=== PATIENT | female | born 1940 | race Caucasian/White ===

== ENCOUNTER 2017-04-22 09:49 | Inpatient (IN) ==
--- NOTE | 2017-04-22 07:26 | Discharge Summary ---
Date of Encounter: 04/25/17 Time of Encounter: 06:29 - Discharge Diagnosis (1) Left rotator cuff tear arthropathy Priority: Primary Status: Chronic (2) Status post reverse total replacement of left shoulder Priority: Primary Status: Acute (3) Hypertension Priority: Secondary Status: Chronic Qualifiers: Hypertension type: unspecified secondary hypertension Qualified Code(s): I15.9 - Secondary hypertension, unspecified; I15 - Secondary hypertension (4) Hyperlipidemia Priority: Secondary Status: Chronic Qualifiers: Hyperlipidemia type: unspecified Qualified Code(s): E78.5 - Hyperlipidemia , unspecified (5) Coronary artery disease Priority: Secondary Status: Chronic Qualifiers: Coronary Disease-Associated Artery/Lesion type: [place] artery [place] vs. transplanted heart: [place] heart Associated angina: angina presence unspecified Qualified Code(s): I25.10 - Atherosclerotic heart disease of [place] coronary artery without angina pectoris (6) Obstructive sleep apnea Priority: Secondary Status: Chronic (7) Diabetes type 2, controlled Priority: Secondary Status: Chronic Qualifiers: Diabetes mellitus complication status: with unspecified complications Diabetes mellitus senior living insulin use: unspecified rodent exterminator insulin use status Qualified Code(s): E11.8 - Type 2 diabetes mellitus with unspecified complications - Discharge Medications Home Medications: Amitriptyline [Elavil] 25 mg PO HS 04/22/17 [History] Furosemide [Lasix] 60 mg PO QAM 04/22/17 [History] Gabapentin [Neurontin] 300 mg PO DAILY 04/22/17 [History] GlipiZIDE [Glipizide Xl] 5 mg PO BID 04/22/17 [History] Metoprolol [Lopressor] 50 mg PO BID 04/22/17 [History] Omeprazole [PriLOSEC] 20 mg PO DAILY 04/22/17 [History] OxyCODONE Immed Rel [Roxicodone 5 MG] 5 mg PO Q4HR PRN #24 tablet 04/22/17 [Rx] Potassium Chloride [K-Tab ER] 40 meq PO BID 04/22/17 [History] metFORMIN [Glucophage] 1,000 mg PO BIDWM 04/22/17 [History] rOPINIRole [Requip] 1 mg PO HS 04/22/17 [History] Allergies/Adverse Reactions: 3 Allergy/AdvReac Type Severity Reaction Status Date / Time levofloxacin [From Levaquin] Allergy Hives Verified 04/22/17 10:25 codeine AdvReac Confusion Verified 04/22/17 10:25 Cortisone AdvReac Confusion Verified 04/22/17 10:25 Primary care physician: PCP NONE - Patient Status Disposition: Transfer Inpatient Rehab Fac Condition: Good Functional capacity at discharge: independent ambulation Overall status at discharge: patient is progressing back to baseline - Discharge Instructions Follow Up With: NONE,PCP [Primary Care Provider] - - Hospital Course Hospital course: Ms. Mann is a 76 year old female Status post left shoulder replacement with autograft The patient had an uneventful postoperative course. They received antibiotics and physical therapy and were discharged in stable condition. There will follow -up in the office in 2 weeks. - Time Spent with Patient Total time spent providing and/or coordinating discharge services:
--- NOTE | 2017-04-22 10:10 | History & Physical Report ---
Date of Encounter: 04/22/17 Time of Encounter: 10:10 24 Hour HP Update - Instructions Instructions: If the History and Physical is less than 30 days old and was completed prior to A.M. admission and or procedure and has NOT been updated on calendar day of procedure please complete this update prior to performing procedure. - Update Patient reports changes in Medical Condition: No Changes in examination, assessment, or condition: No Changes in Medication: No Preop tests/diagnostics Reviewed: Yes Surgery Remains Indicated: Yes Consent for Planned Operative Procedure(s) Verified: Yes - Pre-Operative Checklist Preoperative Checklist Indicated: No Prophylactic Antibiotic Ordered: Yes Is VTE Prophylaxis Indicated?: Yes
[2017-04-22] MEDS ORDERED: CeFAZolin Syr 2,000MG/20 ML 2,000 MG/20 ML SYRINGE IVPB ONE (10:25)
[2017-04-22] MEDS ORDERED: Lidocaine -MPF 1% 2 ML VIAL ID ONE (10:25)
[2017-04-22] MEDS ORDERED: Ringers Solution, Lactated 1,000 ML IVC SCH ×2 (10:30→15:34)
[2017-04-22] MEDS ORDERED: *HR* Propofol 200 MG/20 ML VIAL IVP ONE (10:39)
[2017-04-22] MEDS ORDERED: *HR* FentaNYL (PF) 100 MCG/2 ML VIAL ONE (10:39)
[2017-04-22] MEDS ORDERED: Lidocaine -MPF 2% 2 ML VIAL ONE (10:40)
[2017-04-22] MEDS ORDERED: *HR* Succinylcholine 200 MG/10 ML VIAL IVP ONE (10:42)
--- NOTE | 2017-04-22 11:00 | Anesthesia Evaluation PreOp ---
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 History: Denies Any Significant HX Other Medical History: Diabetes Type II, Other (breast cancer) Anesthesia History: No Prior Anesthetic Complications, Past Anesthesia (CABG, r breast lumpectomy, L shoulder scope, LASHONDA, total hip arthroplasty, transvaginal sling) Alcohol Use: none Drug use: none Medications and Allergies Amitriptyline [Elavil] 25 mg PO HS 04/22/17 [History] Furosemide [Lasix] 20 mg PO 04/22/17 [History] Gabapentin [Neurontin] 300 mg PO 04/22/17 [History] GlipiZIDE [Glipizide Xl] 5 mg PO 04/22/17 [History] Metoprolol [Lopressor] 50 mg PO BID 04/22/17 [History] Omeprazole [PriLOSEC] 20 mg PO DAILY 04/22/17 [History] OxyCODONE Immed Rel [Roxicodone 5 MG] 5 mg PO Q4HR PRN #24 tablet 04/22/17 [Rx] Potassium Chloride [K-Tab ER] 20 meq PO 04/22/17 [History] metFORMIN [Glucophage] 1,000 mg PO BIDWM 04/22/17 [History] rOPINIRole [Requip] 1 mg PO HS 04/22/17 [History] 3 Allergy/AdvReac Type Severity Reaction Status Date / Time levofloxacin [From Levaquin] Allergy Hives Verified 04/22/17 10:25 codeine AdvReac Confusion Verified 04/22/17 10:25 Cortisone AdvReac Confusion Verified 04/22/17 10:25 - Meds/Allergy Pre-op Review Medications Reviewed: Yes Allergies Reviewed: Yes Beta Blockers on Current Med List: Yes (7am today) Anesthesia Results - Labs labs reviewed, will recheck K - Imaging EKG: report reviewed (SR with left axis deviation, non specific t wave changes) Anesthesia Exam O2 Sat Height 1.73 m Height 1.73 m Weight 91.172 kg Weight 91.172 kg O2 Sat by Pulse Oximetry 98 Vital Signs Temp Pulse Resp BP Pulse Ox 97.9 F 82 20 140/85 98 04/22/17 10:27 04/22/17 10:27 04/22/17 10:27 04/22/17 10:27 04/22/17 10:27 Height: 1.73m Weight: 201lbs NPO (# of Hours): >8 Pain Scale: 0 Pain Scale Used: Numeric (1 - 10) - HEENT Pupil (Motor): Pupils equal, EOMI Mallampati: II Teeth: Edentulous Denture Type: Upper: Complete, Lower: Complete - CELL RELINER LOC: Oriented CELL RELINER Motor: Normal RUE, Normal LUE, Normal RLE, Normal LLE, Normal Face CELL RELINER Sensory: Normal: RUE, LUE, RLE, LLE, Face - Cardiac Rhythm: Regular - Pulmonary Breath Sounds: bilateral Clear Respiratory Effort: Symmetrical Anesthesia Assess/Plan ASA Score: 3 Modified Beverley Scale for Level of Consciousness: Cooperative, oriented, and tranquil Anesthetic Plan: General (r/b/a discussed, questions answered, consent obtained) , Regional (Left brachial plexus block) Monitoring Plan: Standard Monitors Recovery Plan: PACU
[2017-04-22] MEDS ORDERED: *HR* Midazolam HCl 2 MG/2 ML VIAL ONE (11:57)
[2017-04-22] MEDS ORDERED: ROPIVACAINE HCL/PF 0.5% 30 ML VIAL ONE (11:59)
--- NOTE | 2017-04-22 12:22 | Anesthesia Procedures ---
Date of Encounter: 04/22/17 Time of Encounter: 12:10 Procedures: Anesthesia - Nerve Block Procedure Date: 04/22/17 Time: 12:10 Allergies/Adv Reactions: levaquin, codeine, cortisone, adhesive tape Pre-op Diagnosis: Left Shoulder Arthritis Surgical Procedure: Left Total Shoulder Arthroplasty Checklist: Correct Patient Identifier, Correct procedure, History checked Correct side: Left Blood Thinner: No Monitor Applied: EKG, BP, Pulse Oximetry Supplemental Oxygen via Nasal Cannula (L/min): 3 Sedation: Versed (mg): 1 Sedation: Fentanyl (mcg): 100 Indication: Post Op Analgesia Pre-op Neuro Deficits: No Block Type: Supraclavicular, Other (Intermediate Cervicl plexus) Catheter placed: No Sterile Technique: Yes Ultrasound used: Yes Anatomy identified: Yes Visual spread of Local: Yes Neuro Stimulation: Yes Nerve Stimulator Range: >0.4 - 0.6 mA Blood on Needle Aspiration: No Smooth Injection of Local: Yes Pain with Injection of Local: No Prep: Chlorhexadine Needle: 22 x 50 mm Stimuplex (echogenic needle) Local: Ropivacaine (0.5%) Volume (cc): 30 Number of Attempts: 1 Complications: None/effective block Vitals: vss
[2017-04-22] MEDS ORDERED: Ondansetron 4 MG/2 ML VIAL IVP ONE (12:43)
[2017-04-22] MEDS ORDERED: *HR* HYDROmorphone (PF) 1 MG/ML SYRINGE IVP PRN ×2 (12:43→15:34)
--- NOTE | 2017-04-22 13:52 | Orthopedic Operative Note ---
Date of procedure: 04/22/17 Pre-op diagnosis: Left shoulder cuff tear arthropathy with severe glenoid and humeral erosion Post-op diagnosis: same Procedure: Procedure: Total Shoulder Replacment Reverse, left, with autograft to glenoid Estimated blood loss: 200 cc Hardware: Metal and polyethylene replacement: Arthrex small glenoid baseplate, 2 4.5 screws. 1 6.5 screw, 36 central glenosphere, 5 humeral stem, poly insert 3 Exam Under anesthesia: Restricted motion in all planes Procedural Notes: Severe medialization of the glenoid humeral joint with severe deformity of the glenoid and humeral head. Patients head was used as an autograft to the glenoid. Operative procedure: The patient was brought to the operating room and placed on the operating room table. After general anesthesia was administered the operative shoulder was examined. Findings were noted. The patient was placed in the modified beachchair position. All pressure points were padded appropriately. And the head was stabilized in the neutral position. The operative extremity was prepped and draped in the sterile surgical fashion. The patient received IV antibiotics prior to skin incision. A standard deltopectoral approach was made to the operative shoulder. Incision was made to the skin and subcutaneous tissue,hemo stasis was obtained with Bovie cautery. Using careful blunt dissection the cephalic vein was identified and mobilized medially. The deltopectoral interval was developed and the clavipectoral fascia was incised. Patient noted to have significant medialization of the humerus, humeral shaft the sitting medial to the coracoid The subscap was released off the lesser tuberosity and tagged with #2 FiberWire suture. The humerus was dislocated patient noted to have severe deformity of the humeral head. A small baseplate was sized for a 20 mm autograft. Central guidepin was placed was reamed with the small reamer the humeral head was transected at an apparent area of the anatomic neck. The central portion was harvested with a 20 mm hole saw. Anterior and posterior Bankart retractors were placed to expose the glenoid. The glenoid had severe deformity as well. Mostly anteriorly. A guidepin was placed was reamed to get a bleeding bony surface for graft incorporation. The graft was secured initially with the central screw 35 mm in length. It was then fixed distally or inferiorly with a 48 compression screw proximally or superiorly with a 36 mm locking screw. This gave good fixation. The baseplate was irrigated and dried and the 36 central Glenosphere was seated and secured with the Prieto taper. The Prieto taper was tested and found to be secure the humerus was redislocated and prepared with the diaphyseal reamers, followed by a broaching process up to the appropriate size 5 in the patient's anatomic version. The metaphyseal reamer was then utilized. Trial reduction found the shoulder to be relocatable. Trial components were removed and the appropriate 5 stem was impacted in place in the patient's anatomic version. Trial reduction found the shoulder to be relocatable and stable with the appropriate 3. Trial component was removed and the real 3 Bhavana was seated and secured the shoulder was reduced. The deep tissue was irrigated with pulse irrigation. The deltopectoral interval was closed with a running #1 PDS suture, subcutaneous tissue was irrigated and closed with 0 PDS suture, the skin was closed with Dermabond. The patient was placed in a sterile dressing, abduction brace and extubated. The patient was then transferred to the recovery room in stable condition. Anesthesia: GETA Surgeon: Js Wray Condition: stable Disposition: PACU
[2017-04-22] MEDS: *HR* Labetalol 20 MG/4 ML SYRINGE IVP PRN ×4 (14:15→14:30)
[2017-04-22 14:40] LABS: Hematocrit 34.2 % (35.3-44.9); Hemoglobin 11.6 g/dL (11.5-15.4)
--- NOTE | 2017-04-22 14:42 | Anesthesia Evaluation Post Op ---
Date of Encounter: 04/22/17 Time of Encounter: 14:41 - Vital Signs Vital Signs: Vital Signs/O2 Sat, Most Current Temp Pulse Resp BP Pulse Ox 97.3 F L 85 16 158/89 99 04/22/17 14:28 04/22/17 14:38 04/22/17 14:38 04/22/17 14:38 04/22/17 14:38 - Lungs Lungs: Clear Ascult./Percussion - Airway Airway: Non-obstructed - Cardiovascular Regular Rate - Mental Status Mental Status: Asleep with brisk response to light stimulation - Pain Pain Scale: 0 Pain Scale used: Numeric (1 - 10) - Nausea Vomiting Nausea Vomiting: Not Present - Hydration Hydration: NPO - Discharge PostOp Status: Transfer Patient to floor Attestation: I have assessed this patient and find they meet discharge criteria.
[2017-04-22] MEDS ORDERED: *HR* Dextrose 50 % in Water (Syg) 50 ML SYRINGE IVP PRN (15:34)
[2017-04-22] MEDS ORDERED: D5% in Water 1,000 ML IVC PRN (15:34)
[2017-04-22] MEDS ORDERED: Dextrose Gel 15 GM PO PRN ×2 (15:34)
[2017-04-22] MEDS ORDERED: Ondansetron 4 MG/2 ML VIAL IVP PRN (15:34)
[2017-04-22] MEDS ORDERED: *HR* OxyCODONE Immed Rel 5 MG TABLET PO PRN (15:34)
[2017-04-22] MEDS ORDERED: Naloxone 0.4 MG/ML INJ IVP PRN (15:34)
[2017-04-22] MEDS ORDERED: Temazepam 15 MG CAPSULE PO PRN (15:34)
[2017-04-22] MEDS ORDERED: Sennosides 8.6 MG TABLET PO PRN (15:34)
[2017-04-22] MEDS ORDERED: MOM Conc 10 ML UD.LIQ PO PRN (15:34)
[2017-04-22] MEDS: CeFAZolin Premix DUPLEX 2,000 MG/50 ML BAG IVPB SCH (17:04)
[2017-04-22] MEDS: Insulin LISPRO 300 UNITS/3 ML VIAL SQ SCH ×2 (17:04→21:08)
[2017-04-22] MEDS: *HR* Metformin 500 MG TABLET PO SCH ×2 (17:05→17:16)
[2017-04-22] MEDS: *HR* Enoxaparin 30 MG/0.3 ML SYRINGE SQ SCH (17:05)
[2017-04-22] MEDS: *HR* OxyCODONE Immed Rel 5 MG TABLET PO PRN (17:16)
[2017-04-22] MEDS ORDERED: *HR* Enoxaparin 30 MG/0.3 ML SYRINGE SQ SCH (18:00)
[2017-04-22] MEDS: *HR* GlipiZIDE XL (24 HR) 2.5 MG TABLET PO SCH (21:08)
[2017-04-23] MEDS: CeFAZolin Premix DUPLEX 2,000 MG/50 ML BAG IVPB SCH (01:04)
[2017-04-23] MEDS: *HR* OxyCODONE Immed Rel 5 MG TABLET PO PRN ×2 (05:25→12:37)
[2017-04-23] MEDS: *HR* Enoxaparin 30 MG/0.3 ML SYRINGE SQ SCH ×2 (05:25→16:43)
[2017-04-23 06:55] LABS: Hemoglobin 11.6 g/dL (11.5-15.4)
--- NOTE | 2017-04-23 09:04 | Orthopedics Progress Note ---
Date of Encounter: 04/23/17 Time of Encounter: 09:03 Subjective Interval history: Patient was seen this morning doing well without complaints. Afebrile vital signs stable. Operative extremity: Neurovascularly intact Dressing clean dry and intact Calves nontender Assessment and plan: Continue with postoperative care Objective Vital signs: Vital Signs Temp Pulse Resp BP Pulse Ox 04/23/17 07:33 99.4 F 115 16 126/67 95 04/22/17 19:36 98.3 F 109 16 157/88 92 04/22/17 17:30 98.3 F 103 14 141/71 94 04/22/17 16:32 92 04/22/17 16:30 97.5 F L 98 16 163/77 92 04/22/17 16:00 97.7 F 92 16 172/73 98 04/22/17 15:30 97.9 F 90 14 157/93 100 04/22/17 14:48 97.1 F L 85 16 166/95 100 04/22/17 14:38 85 16 158/89 99 04/22/17 14:28 97.3 F L 90 16 181/91 99 04/22/17 14:18 91 16 188/101 99 04/22/17 14:08 91 16 180/100 100 04/22/17 13:58 97.1 F L 92 16 196/104 98 04/22/17 12:19 74 16 161/93 96 04/22/17 12:03 74 16 177/84 100 04/22/17 10:27 97.9 F 82 20 140/85 98 Intake and Output 04/22/17 04/23/17 04/23/17 23:59 07:59 15:59 Intake Total 50 / 50 Output Total 700 / 700 300 / 300 Balance -650 / -650 -300 / -300 Intake: IV Fluids 50 / 50 Ancef Premix DUPLEX 2,000 mg In 50 / 50 50 ml @ 100 mls/hr IVPB Q8HR [facility] Rx#:[id number] Output: Urine 700 / 700 300 / 300 Other: Blood Glucose* 165 107 - Labs CBC & BMP: 04/23/17 05:10 04/22/17 12:16 Labs: Abnormal lab results Hct 34.0 % (35.3-44.9) L 04/23/17 05:10 Potassium 3.1 mEq/L (3.5-4.5) L 04/22/17 12:16 POC Glucose 107 (58-89) H 04/23/17 07:38 - VTE Documentation of Mechanical Device: Venous foot pump, device Consult Discharge Plan - Plan Referrals: NONE,PCP [Primary Care Provider] -
[2017-04-23] MEDS: Insulin LISPRO 300 UNITS/3 ML VIAL SQ SCH ×4 (09:47→22:34)
[2017-04-23] MEDS: Furosemide 20 MG TABLET PO SCH (09:47)
[2017-04-23] MEDS: Gabapentin 300 MG CAPSULE PO SCH (09:48)
[2017-04-23] MEDS: *HR* GlipiZIDE XL (24 HR) 2.5 MG TABLET PO SCH ×2 (09:49→20:25)
[2017-04-23] MEDS: *HR* Metformin 500 MG TABLET PO SCH (16:43)
[2017-04-24] MEDS: *HR* OxyCODONE Immed Rel 5 MG TABLET PO PRN ×2 (04:38→23:46)
[2017-04-24 04:56] LABS: Hematocrit 31.5 % (35.3-44.9); Hemoglobin 10.9 g/dL (11.5-15.4)
[2017-04-24] MEDS: *HR* Enoxaparin 30 MG/0.3 ML SYRINGE SQ SCH ×2 (05:50→17:40)
--- NOTE | 2017-04-24 08:05 | Orthopedics Progress Note ---
Date of Encounter: 04/24/17 Time of Encounter: 08:05 - Assessment and Plan (1) Left rotator cuff tear arthropathy Current Visit: No Status: Chronic (2) Status post reverse total replacement of left shoulder Current Visit: No Status: Acute (3) Hypertension Current Visit: Yes Status: Chronic Qualifiers: Hypertension type: unspecified secondary hypertension Qualified Code(s): I15.9 - Secondary hypertension, unspecified; I15 - Secondary hypertension (4) Hyperlipidemia Current Visit: Yes Status: Chronic Qualifiers: Hyperlipidemia type: unspecified Qualified Code(s): E78.5 - Hyperlipidemia , unspecified (5) Coronary artery disease Current Visit: Yes Status: Chronic Qualifiers: Coronary Disease-Associated Artery/Lesion type: [place] artery [place] vs. transplanted heart: [place] heart Associated angina: angina presence unspecified Qualified Code(s): I25.10 - Atherosclerotic heart disease of [place] coronary artery without angina pectoris (6) Obstructive sleep apnea Current Visit: Yes Status: Chronic (7) Diabetes type 2, controlled Current Visit: Yes Status: Chronic Qualifiers: Diabetes mellitus complication status: with unspecified complications Diabetes mellitus nursing home insulin use: unspecified nursing home insulin use status Qualified Code(s): E11.8 - Type 2 diabetes mellitus with unspecified complications Subjective Interval history: Patient was seen this morning doing well without complaints. Afebrile vital signs stable. Operative extremity: Neurovascularly intact Dressing clean dry and intact Calves nontender Assessment and plan: Continue with postoperative care Objective Vital signs: Vital Signs Temp Pulse Resp BP Pulse Ox 04/24/17 07:04 98.7 F 94 17 138/79 94 04/24/17 00:00 97.6 F 98 17 130/79 94 04/23/17 20:22 97.8 F 104 17 133/75 94 04/23/17 12:00 98.9 F 99 16 128/86 95 04/23/17 10:20 99.3 F 116 16 149/80 94 04/23/17 09:52 95 Intake and Output 04/23/17 04/24/17 04/24/17 23:59 07:59 15:59 Intake Total 600 / 600 Output Total 300 / 300 Balance 300 / 300 Intake: Oral 600 / 600 Output: Urine 300 / 300 Other: Meal Dinner Percent of Meal Consumed 100% # Voids 1 Weight 92.3 kg Blood Glucose* 199 123 Patient Weight 04/24/17 23:59 Weight 92.3 kg - Labs CBC & BMP: 04/24/17 04:49 04/22/17 12:16 Labs: Abnormal lab results Hgb 10.9 g/dL (11.5-15.4) L 04/24/17 04:49 Hct 31.5 % (35.3-44.9) L 04/24/17 04:49 Potassium 3.1 mEq/L (3.5-4.5) L 04/22/17 12:16 POC Glucose 123 (58-89) H 04/24/17 07:09 - VTE Documentation of Mechanical Device: Venous foot pump, device Consult Discharge Plan - Plan Referrals: NONE,PCP [Primary Care Provider] -
[2017-04-24] MEDS: Insulin LISPRO 300 UNITS/3 ML VIAL SQ SCH ×4 (08:33→20:37)
[2017-04-24] MEDS: *HR* Metformin 500 MG TABLET PO SCH ×3 (08:35→17:40)
[2017-04-24] MEDS: *HR* GlipiZIDE XL (24 HR) 2.5 MG TABLET PO SCH ×2 (08:35→20:34)
[2017-04-24] MEDS: Gabapentin 300 MG CAPSULE PO SCH (08:35)
[2017-04-24] MEDS: Furosemide 20 MG TABLET PO SCH (08:36)
[2017-04-25] MEDS: *HR* Enoxaparin 30 MG/0.3 ML SYRINGE SQ SCH (05:11)
--- NOTE | 2017-04-25 06:30 | Orthopedics Progress Note ---
Date of Encounter: 04/25/17 Time of Encounter: 06:30 - Assessment and Plan (1) Left rotator cuff tear arthropathy Current Visit: No Status: Chronic (2) Status post reverse total replacement of left shoulder Current Visit: No Status: Acute (3) Hypertension Current Visit: Yes Status: Chronic Qualifiers: Hypertension type: unspecified secondary hypertension Qualified Code(s): I15.9 - Secondary hypertension, unspecified; I15 - Secondary hypertension (4) Hyperlipidemia Current Visit: Yes Status: Chronic Qualifiers: Hyperlipidemia type: unspecified Qualified Code(s): E78.5 - Hyperlipidemia , unspecified (5) Coronary artery disease Current Visit: Yes Status: Chronic Qualifiers: Coronary Disease-Associated Artery/Lesion type: [place] artery [place] vs. transplanted heart: [place] heart Associated angina: angina presence unspecified Qualified Code(s): I25.10 - Atherosclerotic heart disease of [place] coronary artery without angina pectoris (6) Obstructive sleep apnea Current Visit: Yes Status: Chronic (7) Diabetes type 2, controlled Current Visit: Yes Status: Chronic Qualifiers: Diabetes mellitus complication status: with unspecified complications Diabetes mellitus group home insulin use: unspecified group home insulin use status Qualified Code(s): E11.8 - Type 2 diabetes mellitus with unspecified complications Subjective Interval history: Patient was seen this morning doing well without complaints. Afebrile vital signs stable. Operative extremity: Neurovascularly intact Dressing clean dry and intact Calves nontender Assessment and plan: Continue with postoperative care Bone stimulator added to help with graft incorporation discharged today Objective Vital signs: Vital Signs Temp Pulse Resp BP Pulse Ox 04/25/17 04:46 98.1 F 89 16 143/74 94 04/24/17 23:55 99.8 F H 87 16 143/78 95 04/24/17 20:15 99.0 F 109 18 150/82 93 04/24/17 17:52 93 04/24/17 12:13 98.8 F 91 16 113/89 94 04/24/17 07:04 98.7 F 94 17 138/79 94 Intake and Output 04/24/17 04/24/17 04/25/17 15:59 23:59 07:59 Intake Total 150 / 150 50 / 50 0 / 0 Output Total 400 / 400 300 / 300 0 / 0 Balance -250 / -250 -250 / -250 0 / 0 Intake: Oral 150 / 150 50 / 50 0 / 0 Output: Urine 400 / 400 300 / 300 0 / 0 Other: Meal Lunch Percent of Meal Consumed 100% # Voids 1 1 Blood Glucose* 152 139 - Labs CBC & BMP: 04/24/17 04:49 04/22/17 12:16 Labs: Abnormal lab results Hgb 10.9 g/dL (11.5-15.4) L 04/24/17 04:49 Hct 31.5 % (35.3-44.9) L 04/24/17 04:49 Potassium 3.1 mEq/L (3.5-4.5) L 04/22/17 12:16 POC Glucose 206 (58-89) H 04/24/17 20:29 - VTE Documentation of Mechanical Device: Venous foot pump, device Consult Discharge Plan - Plan Referrals: NONE,PCP [Primary Care Provider] -
[2017-04-25 07:32] VITALS: BP 136/70
[2017-04-25] MEDS: Gabapentin 300 MG CAPSULE PO SCH (08:39)
[2017-04-25] MEDS: Furosemide 20 MG TABLET PO SCH (08:39)
[2017-04-25] MEDS: *HR* GlipiZIDE XL (24 HR) 2.5 MG TABLET PO SCH (08:39)
[2017-04-25] MEDS: *HR* Metformin 500 MG TABLET PO SCH (08:39)
[2017-04-25] MEDS: Insulin LISPRO 300 UNITS/3 ML VIAL SQ SCH (08:40)
--- NOTE | 2017-04-25 11:18 | Physician Discharge Referral ---
ExtendedCare Referral Info Transfer To: [facility] Provider in Charge: Dr. Js Wray - Diagnosis (1) Left rotator cuff tear arthropathy Priority: Primary Status: Chronic (2) Status post reverse total replacement of left shoulder Priority: Primary Status: Acute (3) Hypertension Priority: Secondary Status: Chronic (4) Hyperlipidemia Priority: Secondary Status: Chronic (5) Coronary artery disease Priority: Secondary Status: Chronic (6) Obstructive sleep apnea Priority: Secondary Status: Chronic (7) Diabetes type 2, controlled Priority: Secondary Status: Chronic Expected Duration of Placement: less than 30 days Prognosis: Good Aware of Diagnosis: Patient Aware of Prognosis: Patient - Transfer Medications Home Medications: Amitriptyline [Elavil] 25 mg PO HS 04/22/17 [History] Furosemide [Lasix] 60 mg PO QAM 04/22/17 [History] Gabapentin [Neurontin] 300 mg PO DAILY 04/22/17 [History] GlipiZIDE [Glipizide Xl] 5 mg PO BID 04/22/17 [History] Metoprolol [Lopressor] 50 mg PO BID 04/22/17 [History] Omeprazole [PriLOSEC] 20 mg PO DAILY 04/22/17 [History] OxyCODONE Immed Rel [Roxicodone 5 MG] 5 mg PO Q4HR PRN #24 tablet 04/22/17 [Rx] Potassium Chloride [K-Tab ER] 40 meq PO BID 04/22/17 [History] metFORMIN [Glucophage] 1,000 mg PO BIDWM 04/22/17 [History] rOPINIRole [Requip] 1 mg PO HS 04/22/17 [History] Allergies/Adverse Reactions: 3 Allergy/AdvReac Type Severity Reaction Status Date / Time levofloxacin [From Levaquin] Allergy Hives Verified 04/22/17 10:25 codeine AdvReac Confusion Verified 04/22/17 10:25 Cortisone AdvReac Confusion Verified 04/22/17 10:25 - Respiratory Orders Smoking Cessation: Smoking cessation has been advised. For more information, call the [place] Tobacco Quit Line at 1-417-EMMV-NOW. - Ancillary Orders May use pressure relief devices daily prn, May go on ISIDRA w/family/respon republican w /meds at nurse discretion PRN, May consult with Dentist, Piano Sounding Board Matcher, Paint Mixer PRN - Mobility Orders Chair, Ambulate - Rehabiliation Orders Rehab Potential: Good Rehab Orders: Evaluation for Physical Therapy, Evaluation for Occupational Therapy Other: PT/OT for elbow, wrist, and hand ROM. NWB to affected upper extremity. NO shoulder motion. Follow Shoulder Precautions x 6 weeks. Stay in brace during activity and at night. Remove brace during exercises. ICE and elevate extremity frequently throughout the day. - Treatments Skin tear care topically daily PRN per policy List/Other: left shoulder Opsite placed. Keep dressing intact until first follow up appointment. If > 50% saturated, notify office, remove dressing and place appropriate dressing back in place. Leave Zipline intact. Opsite dressing is water resistant, not water- proof. OK to shower, but do not get dressing wet. - Diet Orders Regular CERTIFICATION: I certify that the transfer of the above named patient to an Extended Care Facility is necessary for the continuing treatment of the diagnosis listed. The above information is true and accurate reflection of patient's current condition. Confidential - Redisclosure prohibited without a patient's written consent.
== END 2017-04-25 11:28 | DRG 483 ==
LOC: SAMDAY 09:49 → 3NENU 15:25
PROVIDERS: ADMIT Orthopaedic Surgery; ATTEND Orthopaedic Surgery